=== PATIENT | female | born 2000 | race Caucasian/White ===

== ENCOUNTER 2020-03-27 01:43 | Inpatient (IN) | payer SELFPAY ==
[2020-03-27 01:46] VITALS: BMI 26.5
--- NOTE | 2020-03-27 02:00 | PC.NURSE ---
step sister Lisa, or call pt's cell phone [phone]
--- NOTE | 2020-03-27 02:16 | W.ED.PSYCH ---
HPI - Psych General: Chief Complaint: Psychiatric Symptoms Stated Complaint: SI/ LACERATIONS/ ETOH Time Seen by Provider: 03/27/20 01:50 History of Present Illness: HPI Narrative: 19-year-old intoxicated female presenting after making multiple laceration attempts on her left forearm and stating she wanted to harm herself. She is evidently been depressed after a miscarriage recently. She was having suicidal ideations. Ambulance was called we believe by family. She denies any recent illness other than her miscarriage. No fevers, cough, shortness of breath, diarrhea, etc. MD complaint: suicidal ideation Onset (ago): hour(s) Duration: constant History of same: No Relieving factors: none Exacerbating factors: alcohol Context: recent alcohol abuse Associated psychiatric symptoms: depression and suicidal ideation Associated symptoms: Reports suicidal ideation; Deny auditory hallucinations, visual hallucinations or homicidal ideation If self harm: admits thoughts of self harm and has acted on plan Review of Systems Const: Denies: fever(s) or chills Eyes: Denies: change in vision ENMT: Denies: odynophagia or sinus pain Card: Denies: chest pain, palpitations or irregular heart rhythm Resp: Denies: dyspnea, productive cough, non-productive cough or wheezing GI: Denies: abdominal pain, nausea or vomiting : Denies: dysuria or hematuria Musc: Denies: neck pain Skin/Breast: Denies: rash or erythema Neuro: Denies: headache(s), dizziness or vertigo Psych: Reports: suicidal ideation; Denies: visual hallucinations, auditory hallucinations or homicidal ideation Physical Exam Const: GENERAL APPEARANCE: well developed and odor of alcohol detected ORIENTATION/CONSCIOUSNESS: Yes oriented to person, Yes oriented to place and Yes oriented to time HENMT: COMMON NORMALS: normocephalic, external ears normal and Normal external nose present HEAD & SCALP: normocephalic FACE & SINUS: normal facial exam NOSE: Normal external nose present and No nasal discharge present EXTERNAL EAR: Yes external ears normal Eye: COMMON NORMALS: Equal, round and reactive pupils present, EOMs intact bilaterally and conjunctivae normal EYELID: eyelids normal CONJUNCTIVA: Yes conjunctivae normal PUPIL: Yes Equal, round and reactive pupils present Neck/C-Spine: GENERAL: No tracheal deviation Chest: COMMONS NORMALS: normal inspection of the chest CHEST: No tenderness Resp: COMMON NORMALS: clear to auscultation bilaterally EFFORT & INSPECTION: No tachypneic, No respiratory distress, No retractions, No uses accessory muscles and No tracheal deviation AUSCULTATION: clear to auscultation bilaterally, no rhonchi, no wheezes and lung sounds not diminished Cardio: COMMON NORMALS: regular rate and regular rhythm RATE: regular rate RHYTHM: regular rhythm HEART SOUNDS: no murmurs PERIPHERAL PULSES: radial pulses present GI: INSPECTION: No abdominal distension AUSCULTATION: No Hyperactive bowel sounds present and No Hypoactive bowel sounds present PALPATION: No Guarding due to palpation present (GI) and No Rigid due to palpation PERCUSSION: no dullness to percussion and no tympanic to percussion Neuro: SENSORIUM/ORIENTATION: Yes oriented to person, Yes oriented to place and Yes oriented to time Skin: NARRATIVE SKIN EXAM: Multiple superficial lacerations/abrasions to the left forearm. Nothing repairable. No signs of cellulitis or infection. Bleeding controlled. MDM - Psych MDM Narrative: Medical decision making narrative: 19-year-old female. She is mildly intoxicated. Presents with abrasions/lacerations superficially on her left forearm. Nothing repairable. Bleeding is controlled. She will come in for psychiatric evaluation. Psychiatrist agrees. Upon notification of this, the patient states that she wanted to go home, as she is supposed to be caring for her 15-year-old brother. She was unsure where he is and if he was safe. We have allowed other family to talk to her about where the brother is, and reassured he is safe. She will stay for evaluation. Lab Data: Labs: Lab Results 03/27/20 03/27/20 03/27/20 Range/Units 02:23 02:23 02:23 WBC 9.2 (4.5-13.0) 10^3/ uL RBC 5.16 (4.1-5.3) 10^6/u L Hgb 14.3 (11.5-15.3) g/dL Hct 44.0 (37.0-47.0) % MCV 85.3 (81-99) fL MCH 27.7 L (28.0-34.0) pg MCHC 32.5 (30.0-36.0) g/dL RDW 13.1 (12.1-15.1) % Plt Count 315 (130-400) 10^3/c mm MPV 12.1 H (7.4-10.4) fL Neut % (Auto) 63.3 % Lymph % (Auto) 27.9 % [place] % (Auto) 7.0 % Eos % (Auto) 1.1 % Baso % (Auto) 0.4 % Neut # (Auto) 5.80 (1.8-8.0) 10^3/u L Lymph # (Auto) 2.6 (1.5-6.5) 10^3/u L [place] # (Auto) 0.6 (0.2-0.9) 10^3/u L Eos # (Auto) 0.1 (0.0-0.8) 10^3/u L Baso # (Auto) 0.0 (0.0-0.1) 10^3/u L Nucleated RBC % (a uto) 0 % Nucleated RBCs # 0.0 /100WBC Sodium 147 H (136-145) mmol/L Potassium 3.0 L (3.5-5.1) mmol/L Chloride 110 H (98-107) mmol/L Carbon Dioxide 26 (22-29) mmol/L Anion Gap 14.0 (5-19) BUN 6 (6-20) mg/dL Creatinine 0.6 (0.5-0.9) mg/dL GFR Calculation 127.5 (90-130) mL/min Glucose 86 (65-115) mg/dL Calculated Osmolal ity 301 H (285-295) mOsm/k g Calcium 9.4 (8.5-10.5) mg/dL Total Bilirubin 0.2 (0.15-1.2) mg/dL AST 19 (0-32) U/L ALT 22 (0-33) U/L Alkaline Phosphata se 98 (35-105) IU/L Total Protein 8.0 (6.6-8.7) g/dL Albumin 4.8 (3.5-5.2) g/dL Globulin 3.2 (1.3-4.6) g/dL TSH 1.23 (0.27-4.20) uIU/ mL HCG, Qual Negative (Negative) Urine Color (Yellow) Urine Appearance (CLEAR) Urine pH (5-7) Ur Specific Gravit y (1.005-1.030) Urine Protein (Negative) Urine Glucose (UA) (Normal) Urine Ketones (Negative) Urine Blood (Negative) Urine Nitrate (Negative) Urine Bilirubin (Negative) Urine Urobilinogen (Negative) mg/dL Ur Leukocyte Sherry ase (Negative) Urine RBC (0-2) /hpf Urine WBC (0-5) /hpf Ur Squamous Epith Cells (0-5) /hpf Amorphous Sediment Urine Bacteria (NONE) /hpf Urine Sperm /hpf Salicylates < 0.3 L (3-10) mg/dL Urine Opiates Scre en (Negative) ng/mL Acetaminophen < 5.0 L (10-30) ug/mL Ur Barbiturates Sc reen (Negative) ng/mL Ur Phencyclidine S crn (Negative) ng/mL Ur Amphetamines Sc reen (Negative) ng/mL U Benzodiazepines Scrn (Negative) ng/mL Urine Cocaine Scre en (Negative) ng/mL U Marijuana (THC) Screen (Negative) ng/mL Ethyl Alcohol 150 H (0-10) mg/dL 03/27/20 03/27/20 Range/Units 02:23 02:23 WBC (4.5-13.0) 10^3/ uL RBC (4.1-5.3) 10^6/u L Hgb (11.5-15.3) g/dL Hct (37.0-47.0) % MCV (81-99) fL MCH (28.0-34.0) pg MCHC (30.0-36.0) g/dL RDW (12.1-15.1) % Plt Count (130-400) 10^3/c mm MPV (7.4-10.4) fL Neut % (Auto) % Lymph % (Auto) % [place] % (Auto) % Eos % (Auto) % Baso % (Auto) % Neut # (Auto) (1.8-8.0) 10^3/u L Lymph # (Auto) (1.5-6.5) 10^3/u L [place] # (Auto) (0.2-0.9) 10^3/u L Eos # (Auto) (0.0-0.8) 10^3/u L Baso # (Auto) (0.0-0.1) 10^3/u L Nucleated RBC % (a uto) % Nucleated RBCs # /100WBC Sodium (136-145) mmol/L Potassium (3.5-5.1) mmol/L Chloride (98-107) mmol/L Carbon Dioxide (22-29) mmol/L Anion Gap (5-19) BUN (6-20) mg/dL Creatinine (0.5-0.9) mg/dL GFR Calculation (90-130) mL/min Glucose (65-115) mg/dL Calculated Osmolal ity (285-295) mOsm/k g Calcium (8.5-10.5) mg/dL Total Bilirubin (0.15-1.2) mg/dL AST (0-32) U/L ALT (0-33) U/L Alkaline Phosphata se (35-105) IU/L Total Protein (6.6-8.7) g/dL Albumin (3.5-5.2) g/dL Globulin (1.3-4.6) g/dL TSH (0.27-4.20) uIU/ mL HCG, Qual (Negative) Urine Color Straw (Yellow) Urine Appearance Clear (CLEAR) Urine pH 6.5 (5-7) Ur Specific Gravit y 1.005 (1.005-1.030) Urine Protein Neg (Negative) Urine Glucose (UA) Norm (Normal) Urine Ketones Negative (Negative) Urine Blood 3+ H (Negative) Urine Nitrate Negative (Negative) Urine Bilirubin Neg (Negative) Urine Urobilinogen Norm (Negative) mg/dL Ur Leukocyte Sherry ase Negative (Negative) Urine RBC 0-4 H (0-2) /hpf Urine WBC 10-15 H (0-5) /hpf Ur Squamous Epith Cells 5-10 H (0-5) /hpf Amorphous Sediment Not Reportable Urine Bacteria Trace (NONE) /hpf Urine Sperm /hpf Salicylates (3-10) mg/dL Urine Opiates Scre en Negative (Negative) ng/mL Acetaminophen (10-30) ug/mL Ur Barbiturates Sc reen Negative (Negative) ng/mL Ur Phencyclidine S crn Negative (Negative) ng/mL Ur Amphetamines Sc reen Negative (Negative) ng/mL U Benzodiazepines Scrn Negative (Negative) ng/mL Urine Cocaine Scre en Negative (Negative) ng/mL U Marijuana (THC) Screen Negative (Negative) ng/mL Ethyl Alcohol (0-10) mg/dL Discharge Plan Discharge Patient Disposition: Admitted As Inpatient Clinical Impression: Suicidal ideation Condition: Stable Coding Level of Care Code ED Juice Standardizer for Chloe Fwmiracle Exam Comprehensive
[2020-03-27 02:17] VITALS: BP 115/74; PULSE 88; RESP 16; TEMP 37.1; O2SAT 99
--- NOTE | 2020-03-27 02:24 | ECG_ITS ---
[facility] Test Date: 2020-03-27 Pat Name: Unique Morales Department: Room: Gender: Female Manager Target: : 2000 Requested By: Arias Adan Order Number: [id number] Jenny MD: Mikel Pantoja M.D. Measurements Intervals Martin Rate: 98 P: 56 MT: 134 QRS: 73 QRSD: 90 T: 58 QT: 342 QTc: 437 Interpretive Statements SINUS RHYTHM WITH SINUS ARRHYTHMIA INTERPRETATION BASED ON A DEFAULT AGE OF 40 YEARS No previous ECG available for comparison Electronically Signed On 03-27-2020 11:15:28 SCHEDULE HANGER by Mikel Pantoja M.D. [email or web address]/store/NU/[id number] f
[2020-03-27 02:33] LABS: Basophils % 0.4 %; Eosinophils # 0.1 10^3/uL (0.0-0.8); Eosinophils % 1.1 %; Hemoglobin 14.3 g/dL (11.5-15.3); Lymphocytes # 2.6 10^3/uL (1.5-6.5); Lymphocytes % 27.9 %; Mean Corpuscular HGB Conc 32.5 g/dL (30.0-36.0); Mean Corpuscular Hemoglobin 27.7 pg (28.0-34.0); Mean Corpuscular Volume 85.3 fL (81-99); Mean Platelet Volume 12.1 fL (7.4-10.4); Monocytes # 0.6 10^3/uL (0.2-0.9); Neutrophils % 63.3 %; Nucleated Red Blood Cells % 0 %; Platelet Count 315 10^3/cmm (130-400); Red Blood Count 5.16 10^6/uL (4.1-5.3); Red Cell Distribution Width 13.1 % (12.1-15.1); White Blood Count 9.2 10^3/uL (4.5-13.0)
[2020-03-27 02:37] LABS: HCG Qualitative Urine. Negative (Negative)
[2020-03-27 02:43] LABS: Bilirubin Urine Neg (Negative); Blood Urine 3+ (Negative); Glucose Urine UA Norm (Normal); Ketones Urine Negative (Negative); Leukocyte Esterase Urine Negative (Negative); Nitrate Urine Negative (Negative); Protein Urine Neg (Negative); Specific Gravity, Urine 1.005 (1.005-1.030); Urine Appearance Clear (CLEAR); Urine Color Straw (Yellow); Urobilinogen Urine Norm (Negative); pH Urine 6.5 (5-7)
[2020-03-27 02:44] LABS: Add Urine Microscopic? YES
[2020-03-27 02:45] LABS: Cocaine Screen Urine Negative (Negative); PCP Screen Urine Negative (Negative); THC Screen Urine Negative (Negative)
[2020-03-27 02:46] LABS: RBC Urine 0-4 /hpf (0-2)
[2020-03-27 02:47] LABS: Bacteria Urine TRACE /hpf
[2020-03-27 02:49] LABS: Add Urine Culture? No
[2020-03-27 03:00] LABS: Alanine Aminotransferase 22 U/L (0-33); Albumin Level 4.8 g/dL (3.5-5.2); Alcohol Level 150 mg/dL (0-10); Alkaline Phosphatase 98 IU/L (35-105); Aspartate Amino Transferase 19 U/L (0-32); Blood Urea Nitrogen 6 mg/dL (6-20); Calcium 9.4 mg/dL (8.5-10.5); Carbon Dioxide 26 mmol/L (22-29); Chloride 110 mmol/L (98-107); Globulin 3.2 g/dL (1.3-4.6); Glomerular Filtration Rate 127.5 mL/min (90-130); Glucose 86 mg/dL (65-115); Osmolality Calculated 301 mOsm/kg (285-295); Sodium 147 mmol/L (136-145); Total Bilirubin 0.2 mg/dL (0.15-1.2)
[2020-03-27 03:01] LABS: Amphetamines Screen Urine Negative (Negative); Barbiturates Screen Urine Negative (Negative); Benzodiazepines Screen Urine Negative (Negative); Opiate Screen Urine Negative (Negative)
[2020-03-27 03:02] LABS: Acetaminophen < 5.0 ug/mL (10-30); Salicylate < 0.3 mg/dL (3-10); Thyroid Stimulating Hormone 1.23 uIU/mL (0.27-4.20)
--- NOTE | 2020-03-27 03:49 | PC.NURSE ---
Call to Lisa, step sister to check on pt's little brother. Notified provider, Ramon to talk with Lisa on the phone to confirm, safety of little brother.
[2020-03-27 04:46] VITALS: BP 113/56; PULSE 67; RESP 18; O2SAT 99
[2020-03-27 04:57] VITALS: BP 115/71; PULSE 89; RESP 17; TEMP 36.9; O2SAT 97
[2020-03-27 06:00] VITALS: BP 115/71; PULSE 89; RESP 17; TEMP 36.9; O2SAT 97
[2020-03-27] MEDS: folic acid 1 mg Tablet PO (08:47)
[2020-03-27] MEDS: thiamine 100 mg Tablet PO (08:47)
[2020-03-27] MEDS: multivitamin therapeutic Tablet 1 TAB PO (08:47)
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
[2020-03-27] MEDS: lamoTRIgine 25 mg Tablet PO (11:42)
[2020-03-27 12:37] LABS: Potassium 4.3 mmol/L (3.5-5.1)
[2020-03-27 13:35] VITALS: BP 112/66; PULSE 75; RESP 18; TEMP 36.7; O2SAT 96
[2020-03-27 19:54] VITALS: BP 115/75; PULSE 66; RESP 17; TEMP 37.1; O2SAT 97
[2020-03-27] MEDS: trazodone 50 mg Tablet PO (21:34)
[2020-03-27] MEDS: hyDROXYzine 25 mg Capsule 50 MG PO (21:34)
[2020-03-28 05:33] VITALS: BP 100/70; PULSE 66; RESP 16; TEMP 36.8; O2SAT 96
[2020-03-28] MEDS: thiamine 100 mg Tablet PO (08:30)
[2020-03-28] MEDS: lamoTRIgine 25 mg Tablet PO (08:30)
[2020-03-28] MEDS: multivitamin therapeutic Tablet 1 TAB PO (08:30)
[2020-03-28] MEDS: folic acid 1 mg Tablet PO (08:30)
--- NOTE | 2020-03-28 11:07 | PM.NPN ---
Subjective NPU Subjective: Interval history: This interview was conducted under restrictions necessitated by the Covid pandemic. The interview was performed via FaceTime with the patient utilizing a hand-help iPad. Pt confirms that she is laboring under symptoms of depression: persistent sadness, hopelessness, worthlessness, irritability, insomnia, suicidal ideations. She denied the presence of auditory and visual hallucinations. She denied a history of manic symptoms. She denied the presence of alcohol or substance abuse problems. we discussed the treatments for depression and he history of response to fluoxetine though she did not feel that returning to that medication would be beneficial. Mental Status Exam MSE Comments: This is a well-nourished well-developed white female with adequate dress, grooming and eye contact. No abnormal movements except for psychomotor retardation. Cooperative with exam in no acute distress. Speech was decreased rate and volume. Mood described as sad, affect congruent. Thought process organized. Thought content: Patient denied current suicidal or homicidal ideations, there were no delusions reported or noted, she denied any auditory or visual hallucinations. Attention and concentration were intact and memory appeared reliable but none were formally tested. She is alert and oriented x3. Insight and judgment were impaired, impulse control is limited. Cognition: Patient Appearance: Appropriate Level of Consciousness: Awake, Alert and Inappropriate Patient Cognition Impaired: Yes (nonverbal) Ability to Follow Directions: Good Patient Orientation (long list): Person Comprehension Ability: No Impairment Hallucination Type: None Delusion Description: Not Present Thought Process: Appropriate Affect: Affect Description: Appropriate and Calm Depressive Symptoms: Crying Spells and Unhappiness Behavior: Patient Behavior: Appropriate and Cooperative Speech Pattern: Appropriate and Clear Vitals/I&O/Wt Last Vital Signs Temp 97.8 F 03/29/20 06:00 Pulse 63 03/29/20 06:00 Resp 17 03/29/20 06:00 BP 123/76 03/29/20 06:00 Pulse Ox 97 03/29/20 06:00 Data NPU : 03/27/20 02:23 03/27/20 11:27 A&P Assessment and plan (1) Suicidal ideation: Status: Acute (2) Anxiety disorder: Status: Acute (3) Adjustment disorder with mixed disturbance of emotions and conduct in remission: Status: Acute (4) Cluster B personality disorder: Status: Acute (5) Unspecified mood [affective] disorder: Status: Acute Additional A&P Information This is a 19-year-old white female long history of mental health issues without recent treatment who presents after her second miscarriage and the recent of her mother with suicidal thinking off medication for some time. 1. Medication options were discussed and she agreed to a replacement of the Lamictal with citalopram partly due to better efficacy for depression and partly due to uncertainty about ready follow-up to monitor side effects of Lamictal. 2. Continue every 15 minute checks for safety. 3. Encourage individual, group and milieu therapy. 4. Encourage sober living treatment at the highest level of care to which she is willing to commit. Involuntary Hold Information 96 Hour Hold: 96 Hour Involuntary Admission: Yes 96 Hour Hold Ending Date: 04/04/20 96 Hour Hold Ending Time: 03:30 Attestations NPU Medical Necessity Statement*: Patient will remain in the hospital another 1-2 nights to assess tolerance of medication changes. Coding Level of Care Code Acute Provider Relations Representative for Chloe Eid Diagnoses Suicidal ideation R45.851 Anxiety disorder F41.9 Adjustment disorder with mixed disturbance of emotions and conduct in remission F43.25 Cluster B personality disorder F60.89 Unspecified mood [affective] disorder F39
[2020-03-28 14:00] VITALS: BP 118/68; PULSE 80; RESP 20; TEMP 36.7; O2SAT 97
[2020-03-28] MEDS: citalopram 20 mg Tablet PO (14:41)
[2020-03-28] MEDS: nicotine 2 mg Gum BUCCAL (15:35)
[2020-03-28 19:38] VITALS: BP 133/93; PULSE 76; RESP 17; TEMP 36.8; O2SAT 97
[2020-03-29 06:00] VITALS: BP 123/76; PULSE 63; RESP 17; TEMP 36.6; O2SAT 97
[2020-03-29] MEDS: citalopram 20 mg Tablet PO (08:23)
[2020-03-29] MEDS: multivitamin therapeutic Tablet 1 TAB PO (08:23)
[2020-03-29] MEDS: thiamine 100 mg Tablet PO (08:23)
[2020-03-29] MEDS: folic acid 1 mg Tablet PO (08:23)
[2020-03-29 10:51] VITALS: BP 123/76; PULSE 63; RESP 17; TEMP 36.6; O2SAT 97
--- NOTE | 2020-03-29 11:13 | PM.NDC ---
Diagnoses at Discharge Discharge Diagnosis (1) Suicidal ideation: Status: Resolved (2) Anxiety disorder: Status: Chronic (3) Adjustment disorder with mixed disturbance of emotions and conduct in remission: Status: Resolved (4) Cluster B personality disorder: Status: Chronic (5) Major depression, single episode: Status: Acute (6) Mourning: Status: Acute Reason for Visit Reason for Visit: SI/ LACERATIONS/ ETOH Brief History: History of Present Illness: HPI Narrative: 19-year-old intoxicated female presenting after making multiple laceration attempts on her left forearm and stating she wanted to harm herself. She is evidently been depressed after a miscarriage recently. She was having suicidal ideations. Ambulance was called we believe by family. She denies any recent illness other than her miscarriage. No fevers, cough, shortness of breath, diarrhea, etc. She was admitted to the neuropsychiatric unit for definitive treatment of those issues. She reports having 1 psychiatric hospitalization in her formative years. She was put on medication and she ultimately stopped taking it this is before she was 17 years old. She reports that she would not take her medication and she was running away and things of that nature and so they stopped trying to force treatment on her. She reports that she does not smoke cigarettes daily., She does not drink alcohol daily but did last night, she denies marijuana use or any other illicit drug use she is never been to rehab and never had a DUI. She reports that her mother January 23 of this year she had cardiac problems and her kidneys were failing she was 38 years old. Then she had her second miscarriage and it was basically too much for her to handle. She is reporting that she has a history of some success on medication and including BuSpar. We discussed the risks, its and alternatives of her starting that as well as a titrating dose of Lamictal and she understood and agreed to proceed as is documented in this note. Her last psychiatric evaluation was 06/27/2015 and an excerpt is included below. Hospital Course Hospital Course Assessment and plan (1) Suicidal ideation: Status: Acute (2) Anxiety disorder: Status: Acute (3) Adjustment disorder with mixed disturbance of emotions and conduct in remission: Status: Acute (4) Cluster B personality disorder: Status: Acute (5) Unspecified mood [affective] disorder: Status: Acute Additional A&P Information This is a 19-year-old white female long history of mental health issues without recent treatment who presents after her second miscarriage and the recent of her mother with suicidal thinking off medication for some time. 1. Continue current medication. We will start BuSpar 15 mg p.o. twice daily and Lamictal 25 mg p.o. every morning and titrate to effect. 2. Continue every 15 minute checks for safety. 3. Encourage individual, group and milieu therapy. 4. Encourage sober living treatment at the highest level of care to which she is willing to commit. Hospital Day #3: Pt confirms that she is laboring under symptoms of depression: persistent sadness, hopelessness, worthlessness, irritability, insomnia, suicidal ideations. She denied the presence of auditory and visual hallucinations. She denied a history of manic symptoms. She denied the presence of alcohol or substance abuse problems. we discussed the treatments for depression and he history of response to fluoxetine though she did not feel that returning to that medication would be beneficial. PLAN: Medication options were discussed and she agreed to a replacement of the Lamictal with citalopram partly due to better efficacy for depression and partly due to uncertainty about ready follow-up to monitor side effects of Lamictal. Diagnostic changes: Patient was given diagnosis of major depression?single episode and grief/morning. Involuntary Hold Information 96 Hour Hold: 96 Hour Involuntary Admission: Yes 96 Hour Hold Ending Date: 04/04/20 96 Hour Hold Ending Time: 03:30 Mental Status Exam MSE Comments: Discharge Mental Status Exam: Appearance: hygiene is good; no gross neurological deficits., gait is unremarkable; AIMS=0 Speech: Speech is of normal rate and rhythm and easily understood. Thought processes: Thought processes are abstract. Judgment is adequate for safety. Associations: intact Psychotic processes: There is no indication of guarding or paranoia. There is no attention to the internal stimuli. Auditory and visual hallucinations are denied. Judgment: Insight is fair. Problem solving skills are adequate for safety. Orientation: The patient is oriented to person, place time and situation. Memory: no deficits noted in immediate, intermediate, or remote spheres. Attention: The patient is alert and interpersonally engaged. Language: Verbalizations are coherent. Fund of knowledge: Fund of knowledge is adequate. Affect/Mood: Affect is consistent with a euthymic mood. denied suicidal ideation Affective range is appropriate. Psychosis: perception unimpaired except through cognitive distortion; reality testing intact. Discharge Data Vitals: Last Vital Signs Temp 97.8 F 03/29/20 10:51 Pulse 63 03/29/20 10:51 Resp 17 03/29/20 10:51 BP 123/76 03/29/20 10:51 Pulse Ox 97 03/29/20 10:51 Discharge Plan Discharge Patient Disposition: Home Condition: Stable Prescriptions: New trazodone 50 mg Tablet 50 mg PO BEDTIME PRN (Reason: Sleep) Qty: 10 RF: 3 citalopram 20 mg Tablet 20 mg PO DAILY Qty: 30 RF: 3 buspirone 15 mg Tablet 15 mg PO 0900,2100 Qty: 60 RF: 3 Thera 400 mcg Tablet 1 tab PO DAILY Qty: 30 RF: 0 No Action No Known Home Medications RF: 0 Discharge Orders: Discharge Order (Routine); Ordered 03/29/20 Ordered By: Jozef Marin Referrals: [facility] in [facility] [Other] (do call or stop by this location if your preference is to receive outpatient mental health services here.financial assistance is available. ) [facility] [place] [Other] (primary care and mental health services available at this location. do call if your prefer to go here for outpatient mental health services. Financial Services available ) [facility] [Outside] ([facility] in [place] is an option for outpatient mental health services. do call or stop by if you would like services in [place], [place]. Financial assistance is available. ) [facility] [Outside] (if interested, [facility] provides substance abuse treatment. ) Patient Instructions: Buspirone (By mouth), Trazodone (By mouth), Citalopram (By mouth), Vitamin Combination, Adult Formula (By mouth), Depression (DC), Anxiety (DC) Discharge Attestations NPU Time Spent in Discharge Care*: greater than 30 min Coding Level of Care Code Acute Supervisor [employer] for g Fwd Diagnoses Suicidal ideation R45.851 Anxiety disorder F41.9 Adjustment disorder with mixed disturbance of emotions and conduct in remission F43.25 Cluster B personality disorder F60.89 Major depression, single episode F32.9 Mourning F43.21
== END 2020-03-29 11:45 | disposition home or self-care (01) | DRG 882 ==
LOC: ER 03:25 → NP 04:29
PROVIDERS: Nurse Practitioner Family; Admitting Provider Psychiatry & Neurology Psychiatry; Emergency Provider Emergency Medicine; Visit Provider Psychiatry & Neurology Psychiatry
DX: F43.25 Adjustment disorder with mixed disturbance of emotions and conduct (principal); R45.851 Suicidal ideations; F10.129 Alcohol abuse with intoxication, unspecified; F41.9 Anxiety disorder, unspecified; F60.89 Other specific personality disorders; F39 Unspecified mood [affective] disorder
CPT/HCPCS: 12345; 36415; 80053; 80306; 80307; 81001; 81025; 84132; 84443; 85025; 93005; 99281